=== PATIENT | male | born 1980 | race American Indian/Alaskan Native ===

== ENCOUNTER 2016-08-28 06:34 | Emergency (ER) | payer MEDICAID ==
[2016-08-28 06:49] VITALS: BP 136/94
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
== END 2016-08-28 07:45 | disposition home or self-care (01) ==
LOC: DL.ED 06:34
DX: S93.402A Sprain of unspecified ligament of left ankle, initial encounter (principal); S80.12XA Contusion of left lower leg, initial encounter; E11.9 Type 2 diabetes mellitus without complications; F17.210 Nicotine dependence, cigarettes, uncomplicated; W19.XXXA Unspecified fall, initial encounter
CPT/HCPCS: 73610-LT; 99283

== ENCOUNTER 2016-12-29 13:57 | Emergency (ER) | payer MEDICAID ==
[2016-12-29 14:17] VITALS: BP 141/94
== END 2016-12-29 15:31 | disposition left against medical advice (07) ==
LOC: DL.ED 13:57
DX: Z53.21 Procedure and treatment not carried out due to patient leaving prior to being seen by health care provider (principal)